=== PATIENT | male | born 1995 | race American Indian/Alaskan Native ===

== ENCOUNTER 2016-09-17 15:35 | Emergency (ER) | payer BC ==
[2016-09-17 15:45] VITALS: BP 144/75
[2016-09-17] MEDS ORDERED: Lidocaine 1% with EPINEPHrine 1:100,000 20 ML MDV INJECT ONE (15:53)
--- NOTE | 2016-09-17 15:59 | EDM.PDOC ---
ED HPI GENERAL MEDICAL PROBLEM - General Chief Complaint: Laceration Stated Complaint: LIP INJURY Time Seen by Provider: 09/17/16 15:49 Source of Information: Reports: Patient History Limitations: Reports: No Limitations - History of Present Illness INITIAL COMMENTS - FREE TEXT/NARRATIVE: Patient is a 21-year-old male who presents to the ED complaining of laceration to the right upper lip. Patient was working on a boat and the wrench struck him in the lip. He was not knocked out. Bleeding was controlled. His tetanus is up- to-date. Laceration measures 0.5 cm in diameter. He has no additional complaints. 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: Reports: Other (see below) (none stated) - Related Data Allergies Allergy/AdvReac Type Severity Reaction Status Date / Time No Known Allergies Allergy Verified 09/17/16 15:45 Home Meds: Home Meds Amoxicillin 500 mg PO TID 09/17/16 [History] Past Medical History - Past Health History Medical/Surgical History: Denies Medical/Surgical History Social & Family History - Tobacco Use Smoking Status *Q: Current Every Day Smoker Years of Tobacco use: 5 Packs/Tins Daily: 0.2 - Caffeine Use Caffeine Use: Reports: None - Recreational Drug Use Recreational Drug Use: No - Living Situation & Occupation Living situation: Reports: Single Occupation: Employed ED ROS GENERAL - Review of Systems Review Of Systems: See Below Musculoskeletal: Denies: Neck Pain Skin: Reports: Wound Neurological: Denies: Headache ED EXAM, SKIN/RASH Exam: See Below Exam Limited By: No Limitations General Appearance: Alert, WD/WN, No Apparent Distress Eye Exam: Bilateral Eye: EOMI, PERRL Ears: Hearing Grossly Normal Nose: Normal Inspection Throat/Mouth: Normal Inspection, Normal Oropharynx, Normal Voice, No Airway Compromise, Other (#8 tooth has small chip off the right corner 2nd from recent similar episode. Currently is on amoxicillin. ) Neck: Normal Inspection, Supple Respiratory/Chest: No Respiratory Distress, No Accessory Muscle Use Cardiovascular: Normal Peripheral Pulses, Regular Rate, Rhythm Peripheral Pulses: 2+: Radial (L) Neurological: Alert, Oriented, CN II-XII Intact, Normal Cognition, No Motor/ Sensory Deficits Psychiatric: Normal Affect, Normal Mood Skin: Warm, Dry, Normal Color ED SKIN PROCEDURES - Laceration/Wound Repair Right Face Lac/wound length in cm: 0.5 Appearance: Subcutaneous (did not go through the lip), Clean Distal NVT: Neuro & Vascular Intact Anesthetic Type: Local Local Anesthesia - Lidocaine (Xylocaine): 1% With EPI Local Anesthetic Volume: 2cc Skin Prep: Saline, Sterile Drape Exploration/Debridement/Repair: Wound Explored, in a Bloodless Field, Explored to Base, No Foreign Material Found Closed with: Sutures Suture Size: other (6.0) Drain Placement: No Sterile Dressing Applied: Nurse Tetanus Status Addressed: Yes Complications: No Course - Vital Signs Last Recorded V/S: Last Vital Signs Temp 98.6 F 09/17/16 15:42 Pulse 88 09/17/16 15:42 Resp 18 09/17/16 15:42 BP 144/75 H 09/17/16 15:42 Pulse Ox 98 09/17/16 15:42 - Orders/Labs/Meds Meds: Medications Discontinued Medications Generic Name Dose Route Start Last Admin Trade Name Rayne PRN Reason Stop Dose Admin Lidocaine/Epinephrine 20 ml 09/17/16 15:53 09/17/16 15:59 Xylocaine 1% With Epinephrine 1:100,000 INJECT 09/17/16 15:54 20 ml ONETIME ONE Administration - Re-Assessments/Exams Free Text/Narrative Re-Assessment/Exam: 09/17/16 16:17 Laceration closed with no complications. Discharged home with instructions as documented. Departure - Departure Time of Disposition: 16:19 Disposition: Home, Self-Care 01 Condition: good Clinical Impression: Facial laceration Qualifiers: Encounter type: initial encounter Qualified Code(s): S01.81XA - Laceration without foreign body of other part of head, initial encounter - Discharge Information Instructions: Stitches, Miguel A, or Adhesive Wound Closure, [id number], Laceration Care, Adult, [id number] Referrals: PCP,None [Primary Care Provider] - Forms: ED Department Discharge Additional Instructions: Sutures should come out in 5 days. Follow up with a provider at [facility] in [place] to have them removed. Cleanse site twice daily, and pat dry, reapply bacitracin, and dressing. Keep area clean and dry. Return back to the ED if he develop increased swelling, redness, or purulent drainage. Take Tylenol and ibuprofen alternating fashion for pain.
== END 2016-09-17 16:30 | disposition home or self-care (01) ==
LOC: JD.ED 15:35
DX: S01.81XA Laceration without foreign body of other part of head, initial encounter (principal); F17.210 Nicotine dependence, cigarettes, uncomplicated; W22.8XXA Striking against or struck by other objects, initial encounter
CPT/HCPCS: 12011; 99282-25; 99283-25